=== PATIENT | male | born 1950 | race Caucasian/White ===

== ENCOUNTER 2018-01-14 14:03 | Emergency (ER) | payer OTHER ==
--- NOTE | 2018-01-14 14:47 | EDPHYS ---
Physician Documentation [facility] Name: Jake Berman Age: 67 yrs Sex: Male : 1950 Arrival Date: 01/14/2018 Time: 14:12 Bed 8 Private MD: ED Physician Gibran Roy HPI: 01/14 14:42 This 67 yrs old Male presents to ER via Ambulatory with complaints of left ps1 arm abscess. 14:42 patient believes that he has a spider bite on the left anterior aspect of the humerus. ps1 Patient states it started last week and had 2 white spots and now it is open and draining clear fluid. He has a history of skin infections before in the past and does not want to turn into larger abscess. Pain is mild. No remitting factors. No fever or cellulitic changes. . Historical: - Allergies: 14:21 No Known Allergies; ch - Home Meds: 14:21 aspirin 81 mg Oral chew 1 tab once daily [Active]; Keppra Oral [Active]; Lipitor Oral ch [Active]; - PMHx: 14:21 "spots on my liver and my kidneys"; CVA; kidney cancer, L kidney removed; Seizures; TIA;ch - PSHx: 14:21 L kidney removed; ch - Immunization history:: Adult Immunizations up to date, Last tetanus immunization: up to date Flu vaccine is up to date. - Social history:: Smoking status: Patient uses tobacco products, smokes one pack cigarettes per day. Patient uses alcohol, occasionally. street drugs, marijuana. - Ebola Screening: : Patient negative for fever greater than or equal to 101.5 degrees Fahrenheit, and additional compatible Ebola Virus Disease symptoms Patient denies exposure to infectious person Patient denies travel to an Ebola-affected area in the 21 days before illness onset No symptoms or risks identified at this time. ROS: 14:42 Constitutional: Negative for fever, chills, and weight loss, Eyes: Negative for injury, ps1 pain, redness, and discharge, Cardiovascular: Negative for chest pain, palpitations, and edema, Respiratory: Negative for shortness of breath, cough, wheezing, and pleuritic chest pain, Abdomen/GI: Negative for abdominal pain, nausea, vomiting, diarrhea, and constipation, MS/Extremity: Negative for injury and deformity. 14:42 Skin: Positive for abscess. Exam: 14:42 Constitutional: This is a well developed, well nourished patient who is awake, alert, ps1 and in no acute distress. Head/Face: Normocephalic, atraumatic. Eyes: Pupils equal round and reactive to light, extra-ocular motions intact. Lids and lashes normal. Conjunctiva and sclera are non-icteric and not injected. Chest/axilla: Normal chest wall appearance and motion. Nontender with no deformity. No lesions are appreciated. Cardiovascular: Regular rate and rhythm. No gallops, murmurs, or rubs. Normal PMI, no JVD. No pulse deficits. Respiratory: Lungs have equal breath sounds bilaterally, clear to auscultation and percussion. No rales, rhonchi or wheezes noted. No increased work of breathing, no retractions or nasal flaring. Abdomen/GI: Soft, non-tender, with normal bowel sounds. No distension or tympany. No guarding or rebound. No evidence of tenderness throughout. 14:42 Skin: Appearance: normal except for affected area, 2cm draining abscess with clear serious fluid. . Vital Signs: 14:21 BP 112 / 74; Pulse 60; Resp 22; Temp 98.6; Pulse Ox 98% on R/A; Weight 81.65 kg; Height ch 6 ft. 1 in. (185.42 cm); Pain 7/10; 14:21 Body Mass Index 23.75 (81.65 kg, 185.42 cm) ch MDM: 14:45 Data reviewed: vital signs, nurses notes. ED course: Pt home with bactrim. ps1 antibacterial ointment to be applied liberally to wound.. 14:46 Patient medically screened. ps1 Administered Medications: No medications were administered Disposition: 0218 14:46 Discharged to Home. Impression: Cutaneous abscess of limb. - Condition is Stable. - Discharge Instructions: Abscess, [id number]. - Prescriptions for Bactrim DS 800- 160 mg Oral Tablet - take 1 tablet by ORAL route every 12 hours for 10 days; 20 tablet. - Medication Reconciliation Form, Thank You Letter, Antibiotic Education, Prescription Opioid Use form. - Follow up: Private Physician; When: As needed; Reason: Recheck today's complaints, Continuance of care, Re-evaluation by your physician. Follow up: Emergency Department; When: As needed; Reason: Fever > 102 F, Worsening of condition. - Problem is new. - Symptoms are unchanged. Signatures: Mary Yanez RN RN Gibran Roy MD MD ps1 Corrections: (The following items were deleted from the chart) 15:04 14:46 01/14/2018 14:46 Discharged to Home. Impression: Cutaneous abscess of limb. ch Condition is Stable. Forms are Medication Reconciliation Form, Thank You Letter, Antibiotic Education, Prescription Opioid Use. Follow up: Private Physician; When: As needed; Reason: Recheck today's complaints, Continuance of care, Re-evaluation by your physician. Follow up: Emergency Department; When: As needed; Reason: Fever > 102 F, Worsening of condition. Problem is new. Symptoms are unchanged. ps1
--- NOTE | 2018-01-14 14:47 | ER ---
Nurse's Notes [facility] Name: Jake Berman Age: 67 yrs Sex: Male : 1950 Arrival Date: 01/14/2018 Time: 14:12 Bed 8 Private MD: Diagnosis: Cutaneous abscess of limb Presentation: 01/14 14:18 Presenting complaint: Patient states: 'SPIDER BITE TO L UPPER ARM" since sunday. ch Transition of care: patient was not received from another setting of care. Onset of symptoms was January 12, 2018 at 20:00. Risk Assessment: Do you want to hurt yourself or someone else? Patient reports no desire to harm self or others. Initial Sepsis Screen: Does the patient meet any 2 criteria? No. Patient's initial sepsis screen is negative. Does the patient have a suspected source of infection? No. Patient's initial sepsis screen is negative. Care prior to arrival: None. 14:18 Method Of Arrival: Ambulatory 14:18 Acuity: ARLENE 5 Triage Assessment: 14:21 General: Appears in no apparent distress. comfortable, Behavior is calm, cooperative, ch appropriate for age. Pain: Complains of pain in left axilla and left bicep Pain currently is 7 out of 10 on a pain scale. Neuro: No deficits noted. Respiratory: No deficits noted. Derm: Skin is pink, warm \\T\\ dry. Abscess located on left axilla and left bicep is nickel sized, has purulent drainage, is hot to touch, is red, is raised, was lanced by patient prior to arrival. Musculoskeletal: No signs and/or symptoms reported regarding the musculoskeletal system. Circulation, motion, and sensation intact. Historical: - Allergies: 14:21 No Known Allergies; - Home Meds: 14:21 aspirin 81 mg Oral chew 1 tab once daily [Active]; Keppra Oral [Active]; Lipitor Oral ch [Active]; - PMHx: 14:21 "spots on my liver and my kidneys"; CVA; kidney cancer, L kidney removed; Seizures; TIA;ch - PSHx: 14:21 L kidney removed; ch - Immunization history:: Adult Immunizations up to date, Last tetanus immunization: up to date Flu vaccine is up to date. - Social history:: Smoking status: Patient uses tobacco products, smokes one pack cigarettes per day. Patient uses alcohol, occasionally. street drugs, marijuana. - Ebola Screening: : Patient negative for fever greater than or equal to 101.5 degrees Fahrenheit, and additional compatible Ebola Virus Disease symptoms Patient denies exposure to infectious person Patient denies travel to an Ebola-affected area in the 21 days before illness onset No symptoms or risks identified at this time. Screenin:23 Abuse screen: Denies threats or abuse. Denies injuries from another. Nutritional ch screening: No deficits noted. Tuberculosis screening: No symptoms or risk factors identified. Fall Risk None identified. Assessment: 14:23 Reassessment: Patient appears in no apparent distress at this time. No changes from previously documented assessment. Patient and/or family updated on plan of care and expected duration. Pain level reassessed. Patient is alert, oriented x 3, equal unlabored respirations, skin warm/dry/pink. 15:02 Reassessment: Patient appears in no apparent distress at this time. No changes from previously documented assessment. Patient and/or family updated on plan of care and expected duration. Pain level reassessed. Patient is alert, oriented x 3, equal unlabored respirations, skin warm/dry/pink. Vital Signs: 14:21 BP 112 / 74; Pulse 60; Resp 22; Temp 98.6; Pulse Ox 98% on R/A; Weight 81.65 kg; Height ch 6 ft. 1 in. (185.42 cm); Pain 7/10; 14:21 Body Mass Index 23.75 (81.65 kg, 185.42 cm) ED Course: 14:12 Patient arrived in ED. iw 14:18 Mary Yanez, RN is Primary Nurse. ch 14:20 Triage completed. ch 14:21 Arm band placed on left wrist. Patient placed in an exam room, on a stretcher. ch 14:23 Patient has correct armband on for positive identification. Placed in gown. Bed in low ch position. Call light in reach. Side rails up X 1. 14:23 No provider procedures requiring assistance completed. Patient did not have IV access ch during this emergency room visit. 14:24 Gibran Roy MD is Attending Physician. ps1 Administered Medications: No medications were administered Outcome: 14:46 Discharge ordered by . ps1 15:02 Discharged to home ambulatory. ch 15:02 Condition: stable 15:02 Discharge instructions given to patient, Instructed on discharge instructions, follow up and referral plans. no drinking with medication, medication usage, Demonstrated understanding of instructions, follow-up care, medications, Prescriptions given X 1. 15:04 Patient left the ED. Signatures: Mary Yanez, Joan Beck RN, ch, RN RN Gibran Roy MD MD ps1
== END 2018-01-14 15:04 | disposition home or self-care (01) ==
LOC: ER 14:03
DX: L02.414 Cutaneous abscess of left upper limb (principal); G40.909 Epilepsy, unspecified, not intractable, without status epilepticus; F17.210 Nicotine dependence, cigarettes, uncomplicated; Z79.82 Long term (current) use of aspirin; Z85.528 Personal history of other malignant neoplasm of kidney
CPT/HCPCS: 99282

== ENCOUNTER 2022-09-06 21:45 | Emergency (ER) | payer OTHER ==
--- OUTSIDE RECORDS SUMMARY | 2022-09-06 21:48 | XMS REPORT | Continuity of Care Document ---
:1950 Author Organization [facility] t Address [address] [place] [address] [address] [place] [address] Care Team Providers Name Role Phone KNOW, DOES_NOT Attending Clinician Unavailable Emmanuel Michel Attending Clinician Unavailable KNOW, DOES_NOT Admitting Clinician Unavailable Payers Payer Name Policy Type Policy Number Effective Date Expiration Date S ource Problems This patient has no known problems. Allergies, Adverse Reactions, Alerts Allergy Allergy Status Severity Reaction(s) Onset Inactive Treating Comm ents Source Name Type Date Date Clinician No Known DA Active U 2020-0 [facility]ie - Clear s 00:00: [place] 00 [facility] No Known DA Active U 2020-0 [facility] Allergie - Clear s 00:00: [place] 00 [facility] Medications This patient has no known medications. Procedures This patient has no known procedures. Encounters Start End Encounter Admission Attending Care Care Encounter Source Date/Time Date/Time Type Type Clinicians Facility Department ID 2019-12-12 Inpatient HCAPM BHAVANI [id number] [facility] 16:24:00 98 [facility] 2020-02-16 2020-02-16 Outpatient DIDI MILES [id number] [facility] 18:52:00 18:52:00 DOES_NOT 19 [facility] 2019-12-13 2019-12-13 Outpatient JORDAN Michel [id number] [facility] 07:37:00 07:37:00 Emmanuel 68 [facility] Results Test Description Test Time Test Comments Results Result Comments Source SURG 2019-12-16 14:46:00 --------RUN DATE: 12/16/19 [facility] PAGE 1 RUN TIME: 1446 Specimen Inquiry RUN USER: INTERFACE --------PATIENT: DOUGLAS OSPINA LOC: [place] U #: [id number] AGE/SX: 68/M ROOM: RE12/12/19REG DR: Emmanuel Michel MD : 54 BED: 1 DIS: 12/13/19 STATUS: DIS [place] TLOC: -------- SPEC #: [id number] RECD: 12/15/19 STATUS: SOUT REQ #: [id number] JARETH: 12/12/[address] [facility] [address]: Emmanuel Michel MD ENTERED: 12/15/19 SP TYPE: SURG OTHR DR: DOES_NOT KNOW Self Referred Serge Braga MDORDERED: SURG PATH LVL 3 COPIES TO: DOES_[place] KNOW [place] [id number] [facility], [address] [place] [address] [place] [id number] [facility] [address] [place] [address] HISTOLOGY: TISSUE ID BLK PCS LIZET LEV PROCEDURE DISPOSITION ____ ___ ___ ___ PREPUCE OF PENI A 1 1 PROCEDURES: SURG PATH LVL 3 (12/15/19) TISSUES: A. PREPUCE OF PENIS - [place] CLINICAL HISTORY PENILE FRACTURE CPT CODES CPT CODE(S): 62068 , , , , , , FINAL DIAGNOSIS Foreskin, circumcision: SQUAMOUS EPITHELIUM WITH MILD CHRONIC INFLAMMATION HEMATOMA CONTINUED ON NEXT PAGE --------RUN DATE: 12/16/19 [facility] - LAB PAGE 2 RUN TIME: 1446 Specimen Inquiry RUN USER: INTERFACE --------SPEC #: [id number] PATIENT: DOUGLAS OSPINA #[id number] (Continued) GROSS DESCRIPTION Foreskin. Received in formalin is a cylindrical portion of gutierrez-brown skin and underlying soft tissue, 5.0 x 3.0 x 3.0 cm. The specimen is serially sectioned and consists of dark red-brown soft tissue with large blood clots. Reservations Specialist sections submitted as A1-A3. ba/nr Grossing performed at [facility] Pathology, [facility], [address], [place] [address]. Concrete Finisher: Antolin Schilling M.D. MICROSCOPIC DESCRIPTION Foreskin. Sections demonstrate squamous epithelium with underlying soft tissue. The superficial dermis demonstrates occasional chronic inflammatory cells. Prominent areas of hematoma are also identified. Signed SIGNATURE ON FILE Dada Medrano 12/16/19 1446 -------- END OF REPORT UA RFLX MICR CULT IF INDICATED 2019-12-13 06:24:00 Test Item Value Reference Range Interpretation Comme nts UA COLOR (test code = COLU) YELLOW discript YEL/STRAW UA APPEARANCE (test code = APPU) CLEAR discript CLEAR UA GLUCOSE DIPSTICK (test code = DGLUU) NEGATIVE mg/dL NEG UA BILIRUBIN DIPSTICK (test code = BILU) NEGATIVE mg/dL NEG UA KETONE DIPSTICK (test code = KETU) NEGATIVE mg/dL NEG UA SPECIFIC GRAVITY (test code = SGU) 1.025 SG 1.005-1.030 UA BLOOD DIPSTICK (test code = MARICRUZ) 3+ mg/DL NEG A UA PH DIPSTICK (test code = CARLO) 5.5 pH UNITS 5.0-7.0 UA PROTEIN DIPSTICK (test code = PROU) NEGATIVE mg/dL NEG UA UROBILINIOGEN DIPSTICK (test code = URO) 0.2 mg/dL <2.0 UA NITRITE DIPSTICK (test code = TIFFANIE) NEGATIVE SCREEN NEG UA LEUKOCYTE ESTERASE DIPSTICK (test code = LEUU) NEGATIVE Leuk/mcL NEGATIVE UA WBC (test code = WBCU) 0-1 #WBC/HPF 0-3 UA RBC (test code = RBCU) 5-10 #RBC/HPF 0-3 A UA BACTERIA (test code = BACU) NONE SEEN /HPF NONE-TRACE UA SQUAMOUS CELLS (test code = SQU) TRACE /HPF NONE UA CULTURE NEEDED? (test code = UACULT) NO, WBC<10 Criteria Culture CHK SOURCE OF URINE: CLEAN CATCHIndication for culture: Flank PainUA RFLX MICR CULT IF [id number] 05:50:00 Test Item Value Reference Range Interpretation Comments UA COLOR (test code = COLU) YELLOW discript YEL/STRAW UA APPEARANCE (test code = CLEAR discript CLEAR APPU) UA GLUCOSE DIPSTICK (test NEGATIVE mg/dL NEG code = DGLUU) UA BILIRUBIN DIPSTICK (test NEGATIVE mg/dL NEG code = BILU) UA KETONE DIPSTICK (test NEGATIVE mg/dL NEG code = KETU) UA SPECIFIC GRAVITY (test 1.025 SG 1.005-1.030 code = SGU) UA BLOOD DIPSTICK (test 3+ mg/DL NEG A code = MARICRUZ) UA PH DIPSTICK (test code = 5.5 pH UNITS 5.0-7.0 CARLO) UA PROTEIN DIPSTICK (test NEGATIVE mg/dL NEG code = PROU) UA UROBILINIOGEN DIPSTICK 0.2 mg/dL <2.0 (test code = URO) UA NITRITE DIPSTICK (test NEGATIVE SCREEN NEG code = TIFFANIE) UA LEUKOCYTE ESTERASE NEGATIVE Leuk/mcL NEGATIVE DIPSTICK (test code = LEUU) UA CULTURE NEEDED? (test Criteria Culture CHK code = UACULT) SOURCE OF URINE: CLEAN CATCHIndication for culture: Flank PainBASIC METABOLIC [id number] 05:34:00 Test Item Value Reference Range Interpretation Comments SODIUM (test code = NA) 139 mmol/L 134-147 N POTASSIUM (test code = K) 4.9 mmol/L 3.4-5.0 N CHLORIDE (test code = CL) 105 mmol/L 100-108 N CARBON DIOXIDE (test code = CO2) 26 mmol/L 21-32 N ANION GAP (test code = GAP) 8.0 GAP calc 4.0-15.0 N GLUCOSE (test code = GLU) 147 MG/DL 70-110 H BLOOD UREA NITROGEN (test code = 16 MG/DL 7-18 N BUN) GLOMERULAR FILTRATION RATE (test 50 estGFR >60 L code = GFR) CREATININE (test code = CREAT) 1.5 MG/DL 0.8-1.3 H CALCIUM (test code = CA) 8.3 MG/DL 8.5-10.1 L CBC W/AUTO [id number] 05:27:00 Test Item Value Reference Range Interpretation Comments WHITE BLOOD CELL (test code = 12.8 K/mm3 3.5-11.0 H WBC) RED BLOOD CELL (test code = 4.36 M/mm3 4.70-6.10 L RBC) HEMOGLOBIN (test code = HGB) 14.7 G/DL 12.3-15.9 N HEMATOCRIT (test code = HCT) 44.4 % 35.8-46.7 N MEAN CELL VOLUME (test code = 101.8 Fl 86.3-98.9 H MCV) MEAN CELL HGB (test code = MCH) 33.7 pg 28.9-34.4 N MEAN CELL HGB CONCETRATION 33.1 G/DL 32.1-34.5 N (test code = MCHC) RED CELL DISTRIBUTION WIDTH 12.7 SD 11.5-14.5 N (test code = RDW) PLATELET COUNT (test code = 220 K/mm3 150-450 N PLT) MEAN PLATELET VOLUME (test code 10.20 fL 7.0-9.6 H = MPV) NEUTROPHIL % (test code = NT%) 90.5 % 40-76 H LYMPHOCYTE % (test code = LY%) 5.2 % 20.5-51.1 L MONOCYTE % (test code = MO%) 3.7 % 1.7-9.3 N EOSINOPHIL % (test code = EO%) 0.0 % 0.0-6.0 N BASOPHIL % (test code = BA%) 0.1 % 0.0-2.0 N NUCLEATED RBC % (test code = 0.0 /100WBC% 0.0-1.0 N NRBC%) NEUTROPHIL # (test code = NT#) 11.6 K/mm3 1.8-7.6 H IMMATURE GRANULOCYTE # (test 0.06 x10 3/uL 0.00-0.03 H code = IG#) LYMPHOCYTE # (test code = LY#) 0.7 K/mm3 0.6-3.0 N MONOCYTE # (test code = MO#) 0.5 K/mm3 0.2-1.5 N EOSINOPHIL # (test code = EO#) 0.0 K/mm3 0.0-0.4 N BASOPHIL # (test code = BA#) 0.0 K/mm3 0.0-0.2 N NUCLEATED RBC # (test code = 0.0 K/mm3 0.00-0.01 N NRBC#) MANUAL DIFF REQUIRED (test code NO DIFF/SCN CRITERIA = MDIFF) BASIC METABOLIC [id number] 20:20:00 Test Item Value Reference Range Interpretation Comments SODIUM (test code = NA) 140 mmol/L 134-147 N POTASSIUM (test code = 4.1 mmol/L 3.4-5.0 N K) CHLORIDE (test code = 109 mmol/L 100-108 H CL) CARBON DIOXIDE (test 25 mmol/L 21-32 N code = CO2) ANION GAP (test code = 6.0 GAP calc 4.0-15.0 N GAP) GLUCOSE (test code = 91 MG/DL 70-110 N GLU) BLOOD UREA NITROGEN 15 MG/DL 7-18 N (test code = BUN) GLOMERULAR FILTRATION >=60 max estimate >60 RATE (test code = GFR) estGFR CREATININE (test code = 1.0 MG/DL 0.8-1.3 N CREAT) CALCIUM (test code = CA) 8.2 MG/DL 8.5-10.1 L CBC W/AUTO [id number] 20:18:00 Test Item Value Reference Range Interpretation Comments WHITE BLOOD CELL (test code = 9.4 K/mm3 3.5-11.0 N WBC) RED BLOOD CELL (test code = 4.40 M/mm3 4.70-6.10 L RBC) HEMOGLOBIN (test code = HGB) 14.8 G/DL 12.3-15.9 N HEMATOCRIT (test code = HCT) 44.2 % 35.8-46.7 N MEAN CELL VOLUME (test code = 100.5 Fl 86.3-98.9 H MCV) MEAN CELL HGB (test code = MCH) 33.6 pg 28.9-34.4 N MEAN CELL HGB CONCETRATION 33.5 G/DL 32.1-34.5 N (test code = MCHC) RED CELL DISTRIBUTION WIDTH 12.9 SD 11.5-14.5 N (test code = RDW) PLATELET COUNT (test code = 207 K/mm3 150-450 N PLT) MEAN PLATELET VOLUME (test code 10.20 fL 7.0-9.6 H = MPV) NEUTROPHIL % (test code = NT%) 64.0 % 40-76 N LYMPHOCYTE % (test code = LY%) 25.1 % 20.5-51.1 N MONOCYTE % (test code = MO%) 9.0 % 1.7-9.3 N EOSINOPHIL % (test code = EO%) 0.6 % 0.0-6.0 N BASOPHIL % (test code = BA%) 0.5 % 0.0-2.0 N NUCLEATED RBC % (test code = 0.0 /100WBC% 0.0-1.0 N NRBC%) NEUTROPHIL # (test code = NT#) 6.0 K/mm3 1.8-7.6 N IMMATURE GRANULOCYTE # (test 0.08 x10 3/uL 0.00-0.03 H code = IG#) LYMPHOCYTE # (test code = LY#) 2.4 K/mm3 0.6-3.0 N MONOCYTE # (test code = MO#) 0.9 K/mm3 0.2-1.5 N EOSINOPHIL # (test code = EO#) 0.1 K/mm3 0.0-0.4 N BASOPHIL # (test code = BA#) 0.1 K/mm3 0.0-0.2 N NUCLEATED RBC # (test code = 0.0 K/mm3 0.00-0.01 N NRBC#) MANUAL DIFF REQUIRED (test code NO DIFF/SCN CRITERIA = MDIFF) Coronavirus 2019 nCoV [id number] 19:03:00 Test Item Value Reference Range Interpretation Comments Coronavirus 2019 nCoV Negative NEGATIVE Per ma nufacturer, Bedside (test code = negativ e results should COVNONPUIBED) be treated aspresumptive a nd, if inconsistent wi th clinical signs andsymptoms or necessary for p atient management, diana uld betested with a n alternative mol ecular assay. Negative resultsdo not p reclude SARS-CoV-2 infe ction and should not be usedas the sole basis for patient man agement decisions. Nega tive results should be considered in t he context of apat ient's recent exposure s, history, presen ce of clinicalsigns a nd symptoms consis tent with COVID-19.
[2022-09-06] MEDS ORDERED: MORPHINE 4 MG/ML SYR ONE ×2 (22:17→23:21)
[2022-09-06] MEDS ORDERED: ONDANSETRON 4 MG/2 ML VIAL ONE (22:17)
[2022-09-06] MEDS ORDERED: NA CHLORIDE 0.9% 1,000 ML ONE (22:17)
[2022-09-06 22:32] LABS: Absolute Lymphocytes (CBC) 0.6 K/uL (0.7-4.9); Hematocrit 48.5 % (39.6-49.0); Lymphocytes % 8.2 % (15.3-44.8); MCV 96.6 fL (80-100); MPV 8.1 fL (7.6-11.3); RBC Red Blood Cell Count 5.02 M/uL (4.33-5.43)
[2022-09-06 22:41] LABS: Albumin 3.3 g/dL (3.4-5.0); Bilirubin Total 0.9 mg/dL (0.2-1.0); Potassium 3.7 mmol/L (3.5-5.1); Protein, Total 7.1 g/dL (6.4-8.2)
[2022-09-06 23:02] LABS: SARS-COV-2 RT PCR NEGATIVE (NEGATIVE)
[2022-09-06 23:15] LABS: Urine Blood Trace-intact (Negative); Urine Glucose Negative (Negative); Urine Protein Negative (Negative); Urine pH 5.5 (5.0-7.0)
[2022-09-06] MEDS ORDERED: DICYCLOMINE HCL 20 MG/2 ML AMP IM ONE (23:52)
--- NOTE | 2022-09-07 01:08 | ER ---
Nurse's Notes [facility] Name: Jake Berman Age: 71 yrs Sex: Male : 1950 Arrival Date: 09/06/2022 Time: 21:47 Bed 8 Private MD: Diagnosis: Vomiting, unspecified;Diarrhea, unspecified;Abdominal pain, Generalized Presentation: 09/06 21:50 Chief complaint: Spouse and/or significant other states: "he's been throwing up and as6 having diarrhea all day. he is also having a lot of abdominal pain". Coronavirus screen: At this time, the client does not indicate any symptoms associated with coronavirus-19. Ebola Screen: No symptoms or risks identified at this time. Initial Sepsis Screen: Does the patient meet any 2 criteria? No. Patient's initial sepsis screen is negative. Does the patient have a suspected source of infection? No. Patient's initial sepsis screen is negative. Risk Assessment: Do you want to hurt yourself or someone else? Patient reports no desire to harm self or others. Onset of symptoms was September 06, 2022. 21:50 Method Of Arrival: Ambulatory as6 21:50 Acuity: ARLENE 3 as6 Triage Assessment: 23:23 General: Appears uncomfortable, Behavior is calm, cooperative. GI: Abdomen is obese. kd3 Historical: - Allergies: 21:55 No Known Allergies; as6 - Home Meds: 23:54 aspirin 81 mg Oral chew 1 tab once daily [Active]; Keppra Oral [Active]; Lipitor Oral kd3 [Active]; - PMHx: 21:55 "spots on my liver and my kidneys"; CVA; kidney cancer, L kidney removed; Seizures; TIA;as6 - Immunization history:: Client reports having NOT received the Covid vaccine. - Social history:: Smoking status: Patient reports the use of cigarette tobacco products, smokes one pack cigarettes per day. - Family history:: not pertinent. - Hospitalizations: : No recent hospitalization is reported. Screenin:18 [facility] ED Fall Risk Assessment (Adult) History of falling in the last 3 months, tw5 including since admission No falls in past 3 months (0 pts). Abuse screen: Denies threats or abuse. Denies injuries from another. Abuse screen: Denies threats or abuse. Nutritional screening: No deficits noted. Tuberculosis screening: No symptoms or risk factors identified. Assessment: 22:18 Pain: Complains of pain in suprapubic area, right lower quadrant and left lower tw5 quadrant Pain currently is 8 out of 10 on a pain scale. GI: Abdomen is non-distended, Bowel sounds present X 4 quads. Abdomen is tender to palpation in right lower quadrant and left lower quadrant. : Reports "Only a little bit of urine has been coming out. I am worried because I only have one kidney.". Vital Signs: 21:50 BP 143 / 77; Pulse 73; Resp 20 S; Temp 99.7(O); Pulse Ox 95% on R/A; Weight 92.08 kg as6 (R); Height 6 ft. 1 in. (185.42 cm) (R); Pain 10/10; 22:10 BP 118 / 78; Pulse 66; Resp 19; Pulse Ox 93% on R/A; kd3 23:24 Pulse 72; Resp 19; Pulse Ox 94% ; kd3 21:50 Body Mass Index 26.78 (92.08 kg, 185.42 cm) as6 ED Course: 21:47 Patient arrived in ED. jj6 21:48 Nain Maxwell MD is Attending Physician. rn 21:55 Triage completed. as6 21:55 Arm band placed on. as6 22:02 Guerline Zavala, RN is Primary Nurse. kd3 22:18 Patient has correct armband on for positive identification. Placed in gown. Bed in low tw5 position. Call light in reach. Side rails up X 1. Pulse ox on. NIBP on. Door closed. Noise minimized. Moved to private room. Warm blanket given. Verbal reassurance given. 22:18 Lipase Sent. tw5 22:18 CMP Sent. tw5 22:18 CBC with Diff Sent. tw5 22:18 COVID-19/FLU A+B Sent. tw5 22:18 Initial lab(s) drawn, by ED staff, sent to lab. tw5 23:55 No provider procedures requiring assistance completed. kd3 Administered Medications: 22:15 Drug: NS 0.9% 1000 ml Route: IV; Rate: 1 bolus; Site: left antecubital; tw5 22:18 Drug: Zofran (Ondansetron) 4 mg Route: IVP; Site: left antecubital; tw5 09/07 01:15 Follow up: Response: No adverse reaction; Nausea is decreased kd3 09/06 22:18 Drug: morphine 4 mg Route: IVP; Infused Over: 4 mins; Site: left antecubital; tw5 09/07 01:15 Follow up: Response: No adverse reaction; Pain is decreased kd3 09/06 23:17 Drug: morphine 4 mg Route: IVP; Infused Over: 4 mins; Site: left antecubital; kd3 09/07 01:15 Follow up: Response: No adverse reaction; Pain is decreased kd3 09/06 23:53 Drug: Bentyl (dicyclomine) 20 mg Route: IM; Site: left vastus lateralis; kd3 09/07 01:15 Follow up: Response: No adverse reaction; Pain is decreased kd3 01:09 Drug: HYDROcodone-acetaminophen 5 mg-325 mg 1 tabs Route: PO; kd3 01:15 Follow up: Response: No adverse reaction; Pain is decreased kd3 Medication: 09/06 22:18 VIS not applicable for this client. Outcome: 09/07 01:07 Discharge ordered by . rn 01:15 Patient left the ED. kd3 Signatures: Nain Maxwell MD MD rn Wood, Tiffany tw5 Addie Cleveland Ashby, RN RN as6 Guerline Zavala RN RN kd3
--- NOTE | 2022-09-07 01:08 | EDPHYS ---
Physician Documentation [facility] Name: Jake Berman Age: 71 yrs Sex: Male : 1950 Arrival Date: 09/06/2022 Time: 21:47 Bed 8 Private MD: ED Physician Nain Maxwell HPI: 09/06 22:19 This 71 yrs old Male presents to ER via Ambulatory with complaints of rn Nausea/Vomiting/Diarrhea, decreased urine, Abdominal Pain. 22:19 The patient presents to the emergency department with nausea, vomiting, diarrhea, rn abdominal pain. Onset: The symptoms/episode began/occurred yesterday. Possible causes: unknown. The symptoms are aggravated by nothing. The symptoms are alleviated by nothing. Associated signs and symptoms: Pertinent positives: abdominal pain, anorexia, diarrhea, nausea, vomiting, Pertinent negatives: fever. Severity of symptoms: At their worst the symptoms were moderate in the emergency department the symptoms are unchanged. The patient has not experienced similar symptoms in the past. The patient has not recently seen a physician. Historical: - Allergies: 21:55 No Known Allergies; as6 - Home Meds: 23:54 aspirin 81 mg Oral chew 1 tab once daily [Active]; Keppra Oral [Active]; Lipitor Oral kd3 [Active]; - PMHx: 21:55 "spots on my liver and my kidneys"; CVA; kidney cancer, L kidney removed; Seizures; TIA;as6 - Immunization history:: Client reports having NOT received the Covid vaccine. - Social history:: Smoking status: Patient reports the use of cigarette tobacco products, smokes one pack cigarettes per day. - Family history:: not pertinent. - Hospitalizations: : No recent hospitalization is reported. ROS: 22:19 Constitutional: Negative for fever, chills, and weight loss, Eyes: Negative for injury, rn pain, redness, and discharge, Neck: Negative for injury, pain, and swelling, Cardiovascular: Negative for chest pain, palpitations, and edema, Respiratory: + cough (states chronic) Abdomen/GI: + abd pain and nausea/vomiting/diarrhea MS/Extremity: Negative for injury and deformity, Skin: Negative for injury, rash, and discoloration, Neuro: + generalized weakness Exam: 22:19 Constitutional: This is a well developed, well nourished patient who is awake, alert rn Head/Face: Normocephalic, atraumatic. ENT: dry MM Cardiovascular: Regular rate and rhythm. No pulse deficits. Respiratory: + mild tachypnea, no retractions Abdomen/GI: soft, + tender in all 4 quadrants, no peritoneal signs Skin: Warm, dry MS/ Extremity: Pulses equal, no cyanosis. Neuro: Awake and alert, GCS 15 Vital Signs: 21:50 BP 143 / 77; Pulse 73; Resp 20 S; Temp 99.7(O); Pulse Ox 95% on R/A; Weight 92.08 kg as6 (R); Height 6 ft. 1 in. (185.42 cm) (R); Pain 10/10; 22:10 BP 118 / 78; Pulse 66; Resp 19; Pulse Ox 93% on R/A; kd3 23:24 Pulse 72; Resp 19; Pulse Ox 94% ; kd3 21:50 Body Mass Index 26.78 (92.08 kg, 185.42 cm) as6 MDM: 21:48 Patient medically screened. rn 23:32 Differential diagnosis: Nonspecific abd pain, gastritis, pancreatitis, viral rn gastroenteritis, gastroenteritis. Independent interpretation of the following test(s) in the Emergency Department CT Scan: My interpretation is CT images negative for perforation or obstruction. 09/07 00:08 ED course: Pt able to urinate, no distension of bladder on CT. rn 00:08 Differential diagnosis: perforation, volvulus, urinary retention. Data reviewed: vital rn signs, nurses notes. Historians other than the Patient: Spouse/Significant Other: Spouse contributed to history as well. Care significantly affected by the following chronic conditions: Chronic Kidney Disease, Liver Disease, single kidney. Counseling: I had a detailed discussion with the patient and/or guardian regarding: the historical points, exam findings, and any diagnostic results supporting the discharge/admit diagnosis, lab results. Response to treatment: There is no appreciated change of the patient's symptoms at this time. 01:06 ED course: Pt feels better, tolerating PO, normal WBC, no acute findings on CT abdomen. rn Will dc home with return precautions. . 09/06 22:11 Order name: CBC with Diff rn 09/06 22:11 Order name: CMP rn 09/06 22:11 Order name: Lipase rn 09/06 22:11 Order name: COVID-19/FLU A+B rn 09/06 22:36 Order name: CBC with Automated Diff; Complete Time: 23:13 EDMS 09/06 22:41 Order name: Comprehensive Metabolic Panel; Complete Time: 23:13 EDMS 09/06 22:11 Order name: CT Abd/Pelvis - IV Contrast Only rn 09/06 22:41 Order name: Lipase; Complete Time: 23:13 EDMS 09/06 22:52 Order name: CREATININE WHOLE BLOOD; Complete Time: 23:13 EDMS 09/06 23:02 Order name: COVID-19/FLU A+B; Complete Time: 23:13 EDMS 09/06 23:16 Order name: Urine Dipstick-Ancillary; Complete Time: 23:31 EDMS 09/06 22:11 Order name: IV Saline Lock; Complete Time: 22:18 rn 09/06 22:11 Order name: Labs collected and sent; Complete Time: 22:18 rn 09/06 22:11 Order name: Urine Dipstick-Ancillary (obtain specimen); Complete Time: 23:16 rn 09/06 23:47 Order name: PO challenge; Complete Time: 23:53 rn Administered Medications: 09/06 22:15 Drug: NS 0.9% 1000 ml Route: IV; Rate: 1 bolus; Site: left antecubital; tw5 22:18 Drug: Zofran (Ondansetron) 4 mg Route: IVP; Site: left antecubital; tw5 09/07 01:15 Follow up: Response: No adverse reaction; Nausea is decreased kd3 09/06 22:18 Drug: morphine 4 mg Route: IVP; Infused Over: 4 mins; Site: left antecubital; tw5 09/07 01:15 Follow up: Response: No adverse reaction; Pain is decreased kd3 09/06 23:17 Drug: morphine 4 mg Route: IVP; Infused Over: 4 mins; Site: left antecubital; kd3 09/07 01:15 Follow up: Response: No adverse reaction; Pain is decreased kd3 09/06 23:53 Drug: Bentyl (dicyclomine) 20 mg Route: IM; Site: left vastus lateralis; kd3 09/07 01:15 Follow up: Response: No adverse reaction; Pain is decreased kd3 01:09 Drug: HYDROcodone-acetaminophen 5 mg-325 mg 1 tabs Route: PO; kd3 01:15 Follow up: Response: No adverse reaction; Pain is decreased kd3 Disposition Summary: 09/07/22 01:07 Discharge Ordered Location: Home rn Problem: new rn Symptoms: have improved rn Condition: Stable rn Diagnosis - Vomiting, unspecified rn - Diarrhea, unspecified rn - Abdominal pain, Generalized rn Followup: rn - With: Private Physician - When: As needed - Reason: Recheck today's complaints, Re-evaluation by your physician Discharge Instructions: - Discharge Summary Sheet rn - Abdominal Pain, Adult rn - Diarrhea, Adult rn - Nausea and Vomiting, Adult rn Forms: - Medication Reconciliation Form rn - Thank You Letter rn - Antibiotic home care manager rn - Prescription Opioid Use rn Prescriptions: - Tramadol 50 mg Oral Tablet - take 1 tablet by ORAL route every 8 hours as needed; 12 tablet; Refills: 0, rn Product Selection Permitted - Bactrim DS 800-160 mg Oral Tablet - take 1 tablet by ORAL route every 12 hours for 7 days; 14 tablet; Refills: 0, rn Product Selection Permitted - ondansetron 4 mg Oral - take 4 milligrams by SUBLINGUAL route every 8 hours; 15 tablet; Refills: 0, rn Product Selection Permitted Signatures: Dispatcher [employer] EDNain Talbert MD MD rn Wood, Tiffany tw5 Johnny Lopez RN RN as6 Guerline Zavaal RN RN kd3 Ines Gramajo, PAPriscilla PAPriscilla sb4
[2022-09-07] MEDS ORDERED: HYDROCODONE/APAP 5/325 MG TAB ONE (01:11)
[2022-09-07 02:11] VITALS: TEMP 99.7
[2022-09-07 02:12] VITALS: BP 118/78
[2022-09-07 02:13] VITALS: O2SAT 94
--- NOTE | 2022-09-07 14:29 | RAD REPORT ---
EXAM DESCRIPTION: CT - Abdomen Pelvis W Contrast - 09/07/2022 5:25 am CLINICAL HISTORY: 71 years Male Abd pain COMPARISON: None TECHNIQUE: Images were obtained in axial, sagittal, and coronal planes. Intravenous contrast was adm inistered. Arterial and venous phase imaging was performed. This exam was performed according to our departmental dose-optimization program which includes use of Automated Exposure Control, adjustment of the mA and/or kV according to patient size and/or use of i terative reconstruction technique. FINDINGS: 1.8 cm cyst lateral right lobe of liver. Unremarkable spleen, pancreas, and right adrenal gland. Left adrenal gland is not well visualized. Prior left nephrectomy. Mild compensatory enlargement right kidney. Multiple right renal cysts. No ob structing renal or ureteral calculus on right. No hydronephrosis on right. The total thickening with incomplete distention involving the bladder. Enlarged prostate gland. Appendix not well identified however no secondary signs for appendicitis. No bowel obstruction, perfo ration, or inflammation. No acute osseous abnormality. No abnormality lower lungs bilaterally. No dilatation abdominal aorta. Unremarkable portal vein. No adenopathy or abnormal fluid collections seen. IMPRESSION: Prior left nephrectomy. Mild compensatory enlargement right kidney with multiple renal c ysts. No acute intra-abdominal abnormality. Electronically signed by: Alba Siddiqi MD 09/06/2022 11:13 PM DIRECTOR SUPPLIER [employer]ALITY Due to temporary technical issues with the PACS/Fluency reporting system, reports are being signed by the in house radiologists without review as a courtesy to insure prompt reporting. The interpreting radiologist is fully responsible for the content of the report.
== END 2022-09-07 01:15 | disposition home or self-care (01) ==
LOC: ER 21:45
DX: R11.2 Nausea with vomiting, unspecified (principal); R19.7 Diarrhea, unspecified; R10.84 Generalized abdominal pain; F17.210 Nicotine dependence, cigarettes, uncomplicated; G40.909 Epilepsy, unspecified, not intractable, without status epilepticus; Z86.73 Personal history of transient ischemic attack (TIA), and cerebral infarction without residual deficits; Z79.82 Long term (current) use of aspirin; Z20.822 Contact with and (suspected) exposure to COVID-19
CPT/HCPCS: 85025; 36415; 82565; 81003; 83690; 80053; 0240U; 74177; 96375; 96372; 96374; 99283; Q9967; J0500; J7030; J2405